=== PATIENT | female | born 1950 | race Caucasian/White ===

== ENCOUNTER 2017-09-16 13:15 | Inpatient (IN) | payer OTHER ==
[~2017-09-16] VITALS: Ht 157.5 cm; Wt 66.7 kg
[2017-09-16] MEDS ORDERED: AVAPRO300 MG PO (13:57)
[2017-09-16] MEDS ORDERED: GABAPENTIN400 MG PO (13:58)
[2017-09-16] MEDS ORDERED: CRESTOR10 MG PO (13:58)
[2017-09-28] MEDS ORDERED: OXYC1TAB9 PO (12:25)
[2017-09-28] MEDS ORDERED: PROTONIX40 MG PO (12:25)
[2017-09-28] MEDS ORDERED: Intestinex CAP PO (12:25)
== END 2017-09-28 14:14 | disposition home or self-care (01) | DRG 331 ==
LOC: EDSTATUS 13:15 → ADM 13:15 → SURH 09-25 06:00 → O/R 09-25 06:00 → SURH 09-25 07:00
PROVIDERS: Surgery
PROC: 07TC4ZZ Resection of Pelvis Lymphatic, Percutaneous Endoscopic Approach (ICD-10-PCS; 2017-09-25)
PROC: 0DJD8ZZ Inspection of Lower Intestinal Tract, Via Natural or Artificial Opening Endoscopic (ICD-10-PCS; 2017-09-25)
PROC: 3E0H8KZ Introduction of Other Diagnostic Substance into Lower GI, Via Natural or Artificial Opening Endoscopic (ICD-10-PCS; 2017-09-25)
PROC: 0DTN4ZZ Resection of Sigmoid Colon, Percutaneous Endoscopic Approach (ICD-10-PCS; principal; 2017-09-25 07:00)
DX: C19 Malignant neoplasm of rectosigmoid junction (principal); I11.9 Hypertensive heart disease without heart failure; E78.4 Other hyperlipidemia

== ENCOUNTER 2017-09-24 11:30 | Day surgery (SDC) | payer OTHER ==
[~2017-09-24 11:30] MED LIST: AVAPRO300 MG PO; CRESTOR10 MG PO; GABAPENTIN400 MG PO
== END 2017-09-24 16:10 | disposition home or self-care (01) ==
LOC: AMB-ENDOS 11:30
DX: C18.7 Malignant neoplasm of sigmoid colon (principal)

== ENCOUNTER 2017-10-23 12:40 | Emergency (ER) | payer OTHER ==
[~2017-10-23] VITALS: Ht 157.5 cm; Wt 66.7 kg
[~2017-10-23 12:40] MED LIST changes: +Intestinex CAP PO; +OXYC1TAB9 PO; +PROTONIX40 MG PO
== END 2017-10-23 20:55 | disposition home or self-care (01) ==
LOC: ER 12:40
DX: G89.18 Other acute postprocedural pain (principal); R10.31 Right lower quadrant pain; K57.30 Diverticulosis of large intestine without perforation or abscess without bleeding